=== PATIENT | female | born 1960 | race Caucasian/White ===

== ENCOUNTER → 2017-02-02 | Outpatient (CLI) | payer BC ==
--- NOTE | 2017-02-02 15:06 | DIAGNOSTIC IMAGING REPORT ---
RIGHT SHOULDER MIN 2 VIEWS ROUTINE CLINICAL HISTORY: Right shoulder pain. Supraspinatus tendinitis. COMPARISON: None FINDINGS: Alignment of the right shoulder is anatomic. There is no fracture or suspicious lesion. There is mild AC joint arthrosis. Glenohumeral joint space is preserved. IMPRESSION: Mild osteoarthritis of the right acromioclavicular joint. Electronically signed by: Dillon Rivera M.D. 02/02/2017 3:05 PM Dictated Date/Time: 02/02/2017 3:04 PM
--- NOTE | 2017-02-02 15:09 | DIAGNOSTIC IMAGING REPORT ---
C-SPINE ROUTINE 4 OR 5 VIEWS CLINICAL HISTORY: ACUTE CERVICAL RADICULOPATHY COMPARISON STUDY: No previous studies for comparison. FINDINGS: There is straightening of the normal cervical lordosis. Vertebral body heights are maintained. There is no fracture or suspicious lesion. There is mild disc space narrowing at C5-C6 and C6-C7. There is mild to moderate bony neural foraminal narrowing of the right C5-C6 and C6-C7 neural foramen. No suspicious osseous lesion is identified. There is no fracture. IMPRESSION: 1. No cervical spine fracture or subluxation. 2. Mild degenerative disc disease at C6-C7 and to a lesser extent C5-C6. 3. Mild to moderate bony neural foraminal narrowing of the right C5-C6 and C6-C7 neural foramen. Electronically signed by: Dillon Rivera M.D. 02/02/2017 3:07 PM Dictated Date/Time: 02/02/2017 3:05 PM
== END | disposition home or self-care (01) ==
LOC: C.RAD 14:04
PROVIDERS: ATTEND Nurse Practitioner Family
DX: M19.011 Primary osteoarthritis, right shoulder (principal); M50.323 Other cervical disc degeneration at C6-C7 level; M75.81 Other shoulder lesions, right shoulder; M54.12 Radiculopathy, cervical region

== ENCOUNTER → 2018-01-10 | Outpatient (CLI) | payer OTHER ==
--- NOTE | 2018-01-10 14:35 | MAMMOGRAPHY REPORT ---
BILATERAL DIGITAL DIAGNOSTIC MAMMOGRAM TOMOSYNTHESIS WITH CAD AND TARGETED LEFT ULTRASOUND: 01/10/2018 CLINICAL HISTORY: Follow-up of a small faint cluster of punctate microcalcifications in the central r ight breast. Also time of annual bilateral screening exam. TECHNIQUE: Bilateral breast tomosynthesis in addition to standard 2D mammography was performed. Spot magnification right CC and MLO views were also obtained. Current study was also evaluated with a [employer]ose[employer] Aided Detection (CAD) system. COMPARISON: Comparison is made to exams dated: 01/07/2017 mammogram, 07/06/2016 mammogram, 12/26/2015 u ltrasound, 12/26/2015 mammogram, 12/05/2015 mammogram, and 11/15/2014 ultrasound - [facility]. BREAST COMPOSITION: The tissue of both breasts is heterogeneously dense, which may obscure small mas ses. FINDINGS: There is a circumscribed, oval, partially calcified 12 mm mass in the upper outer posterior right breast that is decreased in size comparing to more remote prior mammograms, confirming a benig n mass. No new suspicious masses, asymmetries or areas of architectural distortion are identified in the right breast. Spot magnification views of the right breast redemonstrate a small 5 mm grouping of faint punctate microcalcifications in the central right breast, that appears stable dating back to spot magnification views performed on 12/26/2015. Although these calcifications most likely represen t benign fibrocystic change, another 12 month follow-up diagnostic mammogram including spot magnifica tion views is recommended to ensure longer stability. No other new suspicious calcifications are garry ntified in the right breast. There is a 7 mm nodular asymmetry in the superior posterior left breast on the MLO view (tomosynthesi s slice 55/84), and also seen on the 2D view that is not definitely seen on more remote prior mammogr ams. Further characterization with ultrasound was performed. No other new suspicious masses, calcif ications, areas of architectural distortion or asymmetries are identified in the left breast. Targeted ultrasound was performed in the superior left breast with particular attention to the upper inner quadrant. In the 11:00 axis, 8 cm from the nipple, there is a parallel isoechoic to slightly h ypoechoic non-circumscribed mass measuring 5.0 x 2.5 x 5.1 mm. This may correlate with the mammograp hic nodular asymmetry and is indeterminate. Definitive characterization with an ultrasound-guided co re biopsy is recommended. IMPRESSION: ACR BI-RADS CATEGORY 4: SUSPICIOUS, TARGETED ULTRASOUND ACR BI-RADS CATEGORY 4: SUSPICIO US 1. Ultrasound-guided core biopsy is recommended for a 6 mm isoechoic solid-appearing mass in the 11: 00 left breast, thought to correlate with a newly visualized mammographic nodular asymmetry. Correla tion with post procedure mammograms is recommended to ensure mammographicsonographic correlation. 2. Pending benign pathology results, would recommend another 12 month follow-up diagnostic mammogram including right spot magnification views to ensure longer stability of the 5 mm cluster of faint punc carpenter microcalcifications in the central right breast. These results and recommended agents were discussed with the patient at the time of the exam. She te ntatively scheduled the follow-up appointments prior to leaving our department. Approximately 10% of breast cancers are not detected with mammography. A negative mammographic report should not delay biopsy if a clinically suggestive mass is present. Maylin Barahona M.D. ay/:01/10/2018 11:15:35 Truck Driver Flatbed: Trisha Karimi, [facility] letter sent: Abnormal 4/5 BI-RADS Code: ACR BI-RADS Category 4: Suspicious Ultrasound BI-RADS: ACR BI-RADS Category 4: Suspici ous
== END | disposition home or self-care (01) ==
LOC: C.MAMM 09:21
PROVIDERS: ATTEND Obstetrics & Gynecology
DX: R92.0 Mammographic microcalcification found on diagnostic imaging of breast (principal); N63.20 Unspecified lump in the left breast, unspecified quadrant

== ENCOUNTER → 2018-01-20 | Outpatient (CLI) | payer OTHER ==
--- NOTE | 2018-01-20 10:37 | Discharge Instructions ---
Discharge Instructions Procedure Procedure Date: January 20, 2018. Reason for visit: Left Mass. Discharge Discharge Date: January 20, 2018. Discharge Diagnosis: status post breast biopsy Instructions Activity Recommendations: Additional Limitations (see below) Return to School/Work: no limitations Recommended Home Diet: No Limitations Provider Instructions: ACTIVITY RECOMMENDATIONS: * No lifting, pushing, pulling or exercising the affected side for three days. RETURN TO SCHOOL/WORK: * You may return to work/school after the procedure, but do not perform any strenuous activities for 24 to 48 hours. MEDICATIONS: * Tylenol (two 325 mg) every four to six hours if needed for mild pain (if not allergic to Tylenol). DIET: * Resume previous diet. SPECIAL CARE INSTRUCTIONS: * Keep biopsy site dry for 24 hours. May shower after 24 hours, but do not soak (bathe) incision. * May remove Tegaderm (plastic patch) tomorrow AFTER showering. * Leave the steri-strips on for one week. Allow the steri-strips to fall off by themselves. If not off after one week, you may remove them. You may place a Bandaid crosswise over the strips, if desired. * Apply ice 10 minutes on and 10 minutes off as needed. * Wear a bra at bedtime to sleep more comfortably for 2-3 days. * Your referring physician should have the results after approximately 5 to 7 business days. * Call for unusual bleeding, fever, drainage, etc or if you have any questions call during normal business hours or after hours call Dr Cordero, . FOLLOW UP VISIT: Follow-up with Referring Physician as scheduled. Allergies Coded Allergies: No Known Allergies (Verified Allergy, Unknown, 10/19/02) Uncoded Allergies: N (Allergy, Unknown, 10/19/02) NFA (Allergy, Unknown, 10/19/02) NKDA (Allergy, Unknown, 10/19/02) Tony Jaramillo Recommendations: Call your doctor if: * Temperature above 101 degrees * Pain not relieved by pain medicine ordered * There is increased drainage or redness from any incision * You have any unanswered questions or concerns. Your Doctors Instructions noted above were prepared by provider Kadi Cordero. Patient Signature Section: Patient Instructions Signature Page Cora Dupont Patient (or Guardian) Signature/Date: I have read and understand the instructions given to me by my caregivers. Caregiver/RN/Doctor Signature/Date: The above-named patient and/or guardian has received patient instructions on this date. + Original Patient Signature Page (only) stays with chart. Please make copy for patient.
--- NOTE | 2018-01-20 15:34 | MAMMOGRAPHY REPORT ---
UNILATERAL LEFT DIGITAL DIAGNOSTIC MAMMOGRAM TOMOSYNTHESIS: 01/20/2018 CLINICAL HISTORY: Status post left breast ultrasound-guided biopsy. TECHNIQUE: Breast tomosynthesis in addition to standard 2D mammography was performed. Postprocedura l left CC and ML tomosynthesis images including C views were obtained. COMPARISON: Comparison is made to exams dated: 01/10/2018 ultrasound, 01/10/2018 mammogram, 01/07/2017 amna mogram, 07/06/2016 mammogram, 12/26/2015 ultrasound, and 12/26/2015 mammogram - [facility]. BREAST COMPOSITION: The tissue of the left breast is heterogeneously dense, which may obscure small masses. FINDINGS: A new biopsy marker clip is seen at the site of the biopsied mass in the left superior pos terior breast at approximately 11 to 12:00. The biopsy clip is located at the site of the original m ammographic mass indicating good correlation between the biopsied sonographic mass and the mammograph ic mass. No significant postbiopsy hematoma is seen. IMPRESSION: POST PROCEDURE IMAGING FOR MARKER PLACEMENT New biopsy marker clip status post left breast biopsy. Pathology results are pending. Approximately 10% of breast cancers are not detected with mammography. A negative mammographic report should not delay biopsy if a clinically suggestive mass is present. Kadi Cordero M.D. /:01/20/2018 10:51:43 Loan Auditor: Trisha Karimi, [facility] BI-RADS Code: Post Procedure Imaging For Marker Placement
--- NOTE | 2018-01-20 15:34 | MAMMOGRAPHY REPORT ---
ULTRASOUND GUIDED BIOPSY LEFT BREAST: 01/20/2018 CLINICAL HISTORY: Left 11:00 breast mass. PATIENT CONSENT: The procedure, risks and benefits were discussed with the patient and informed writt en consent was obtained. A timeout was performed immediately prior to the procedure. PROCEDURE DESCRIPTION: With ultrasound guidance, aseptic technique, and lidocaine as the local anesth etic (1% lidocaine to anesthetize the skin and 1% lidocaine with epinephrine to anesthetize the deepe r tissues), the mass of concern in the left 11:00 breast was sampled 3 times with a 14-gauge Achieve biopsy needle. Immediately thereafter, with ultrasound guidance, aseptic technique, and lidocaine as the local anesthetic, a metallic localizer clip was placed at the biopsy site. Direct pressure was applied to the site immediately post procedure and hemostasis was achieved. Postprocedure unilateral mammograms were performed to confirm clip placement; see separate dictation for details. The patient tolerated the procedure without complication. She was given wound care instructions. The specimens were sent to pathology for analysis. COMPARISON: Comparison is made to exams dated: 01/10/2018 ultrasound, 01/10/2018 mammogram, 01/07/2017 amna mogram, 07/06/2016 mammogram, 12/26/2015 ultrasound, and 12/26/2015 mammogram - [facility] enter. IMPRESSION: ULTRASOUND GUIDED BIOPSY Ultrasound-guided core needle biopsy of the left 11:00 breast mass, with clip placement. The patient will receive pathology results from her referring provider. Pending benign pathology results, would recommend follow-up diagnostic mammograms in 12 months to ensure longer stability of right breast ca lcifications. Kadi Cordero M.D. /:01/20/2018 10:39:54 Inside Sales Advertising Executive: Trisha Karimi, [facility]
== END | disposition home or self-care (01) ==
LOC: C.MAMM 10:08
PROVIDERS: ATTEND Obstetrics & Gynecology
DX: N63.20 Unspecified lump in the left breast, unspecified quadrant (principal)